=== PATIENT | female | born 1980 | race African-American/Black ===

== ENCOUNTER 2016-09-08 03:32 | Emergency (ER) | payer OTHER ==
[~2016-09-08] VITALS: Ht 162.6 cm; Wt 77.1 kg
[2016-09-08 03:32] VITALS: BP 128/72
[~2016-09-08 03:32] MED LIST: ATIVAN0.5 MG PO; FLAGYL500 MG PO; MECLIZINE 25 MG25 M1 PO; NAPROSYN500 MG PO; NOHOMEMEDICATIONS; NORCO 5-325 TA1 EACH PO; ULTRAM 50MG TAB50 MG PO
[2016-09-08] MEDS ORDERED: PHENERGAN 25 MG25 M1 PO (03:53)
[2016-09-08] MEDS ORDERED: TORADOL 10 MG T10 MG PO (03:53)
[2016-09-08 04:14] LABS: URINE BLOOD 3+ (Negative); URINE GLUCOSE-RANDOM* NEGATIVE (Negative); URINE KETONES TRACE (Negative); URINE LEUKOCYTES-REFLEX TRACE (Negative); URINE PROTEIN (DIPSTICK) 1+ (Negative); URINE SPECIFIC GRAVITY >= 1.030 (1.003-1.035); URINE UROBILINOGEN 0.2 E.U./dl (0.2-1.0)
[2016-09-08 04:37] LABS: URINE COLOR DARK YELLOW
[2016-09-08 04:38] LABS: ICTOTEST (BILI CONFIRMATORY) Negative (Negative); URINE BILIRUBIN NEGATIVE (Negative)
[2016-09-08 04:47] LABS: SQUAMOUS 4-10 Moderate /LPF (0-3); URINE RBC >20 Many /HPF (0-2)
[2016-09-08 04:49] LABS: CASTS None Seen /LPF (None Seen); CRYSTALS None Seen /LPF (None Seen); URINE WBC-REFLEX 0-5 Rare /HPF (0-5)
== END 2016-09-08 04:31 | disposition home or self-care (01) ==
LOC: ER 03:32
PROVIDERS: Emergency Medicine
DX: N94.6 Dysmenorrhea, unspecified (principal); F17.200 Nicotine dependence, unspecified, uncomplicated; F12.10 Cannabis abuse, uncomplicated